=== PATIENT | male | born 1975 | race Caucasian/White ===

== ENCOUNTER → 2017-01-03 | Outpatient (CLI) | payer OTHER ==
[2013-04-11 11:26] VITALS: BP 96/58
--- NOTE | 2017-01-04 11:33 | CT ---
HISTORY: Trauma 2 months ago with persistent back pain. Study: CT thoracic spine without contrast Comparison: None. Technique: Multiple axial images of the thoracic spine were obtained from the thoracic inlet to the t horacolumbar junction. Sagittal and coronal reconstructions were performed and reviewed. Dose reduc tion techniques including Automated Exposure Control (AEC) and adjustment of mA and kV were utilized. Findings: No acute fracture dislocation. Mild S-shaped curvature of the thoracic spine, which may represent pos itioning versus muscle spasm. Mild multilevel disc space narrowing, endplate sclerosis, and anterior disc osteophyte complexes. Schmorl's nodes are also seen. Otherwise, the vertebral body heights and d isc spaces are maintained. No significant neural foraminal narrowing or spinal canal stenosis. Mild c entrilobular and paraseptal emphysematous changes of the lungs. The soft tissues are otherwise unrema rkable. IMPRESSION: Chronic findings as above. Reported By:
== END | disposition home or self-care (01) | DRG 552 ==
LOC: RAD 14:32
PROVIDERS: ATTEND Specialist
DX: M54.6 Pain in thoracic spine (principal); M25.78 Osteophyte, vertebrae
CPT/HCPCS: 72128